=== PATIENT | male | born 1975 | race Caucasian/White ===

== ENCOUNTER 2022-05-21 16:31 | Emergency (ER) | payer OTHER, SELFPAY ==
[2022-05-21 16:34] VITALS: BP 149/109; PULSE 82; RESP 20; TEMP 36.6; O2SAT 100
[2022-05-21 16:42] LABS: Glucose Point of Care 460 mg/dl (65-105)
--- NOTE | 2022-05-21 17:38 | ED.RECABL ---
HPI - Recheck/Abnormal Lab/Rx General Chief Complaint: Recheck/Abnormal Lab/Rx Stated Complaint: can't get blood suger under 500 Time Seen by Provider: 05/21/22 17:03 Source: patient Mode of arrival: ambulatory Limitations: no limitations History of Present Illness HPI narrative: 46 years old white male drove himself to the emergency room because unable to control his blood glucose over the last 2 days. Blood glucose was over 500 prior to arrival to the emergency room. patient denies any fever, chills, , vomiting, chest pain, shortness of breath, abdominal pain, back pain, or respiratory symptoms. Complaining of blurry vision, thirsty, increased frequency of urination. Patient reports lately been noncompliant with his medications or his diet. Is going through divorce with a lot of stress Related Data Home Medications Medication Instructions Recorded Confirmed glimepiride 2 mg tablet 2 mg PO DAILY 05/21/22 rosuvastatin 10 mg tablet 10 mg PO DAILY 05/21/22 Allergies Allergy/AdvReac Type Severity Reaction Status Date / Time No Known Allergies Allergy Unknown Verified 05/21/22 16:37 Review of Systems Review of Systems: All systems reviewed & are unremarkable except as noted in HPI and below PMFSH Social History Social History Smoking status: Current every day smoker Alcohol intake: never Exam Narrative: General appearance: Well-developed, well-nourished Skin: Normal color Head: Normocephalic, nontraumatic Eyes: Clear conjunctiva ENT: Oropharynx normal, ears normal, nose normal Neck: Supple, nontender Chest and respiratory: Airway patent, no respiratory distress, no accessory muscle use Heart: Regular rate/rhythm Abdomen: Soft, nontender, no organomegaly, quiet bowel sounds Vascular: Normal peripheral pulses, normal capillary refill. Musculoskeletal: Normal range of motion, nontender back Neurologic: Alert and oriented ?3, COMMERCIAL MAINTENANCE TECHNICIAN is normal as tested, no gross motor deficit Course Course Emergency Course: Work-up today showed that the patient is not in DKA, patient is noncompliant with his medication, 2 L of normal saline was given, 10 units of insulin IV was given, patient was advised to continue his home medication and to follow-up with his family physician for further evaluation. Vital Signs Vital signs: Vital Signs Temperature 36.6 C 05/21/22 16:34 Pulse Rate 82 05/21/22 16:34 Respiratory Rate 20 05/21/22 16:34 Blood Pressure 149/109 H 05/21/22 16:34 Pulse Oximetry 100 05/21/22 16:34 Oxygen Delivery Room Air 05/21/22 16:34 Temperature 36.6 C 05/21/22 16:34 Pulse Rate 82 05/21/22 16:34 Respiratory Rate 20 05/21/22 16:34 Blood Pressure 149/109 H 05/21/22 16:34 Pulse Oximetry 100 05/21/22 16:34 Oxygen Delivery Room Air 05/21/22 16:34 MDM - Recheck/Abnormal Lab/Rx Differential Diagnosis Differential diagnosis: Likely other (Contacted for blood glucose management) Lab Data Result diagrams: 05/21/22 17:55 05/21/22 17:55 Labs: Lab Results 05/21/22 05/21/22 05/21/22 Range/Units 16:39 17:55 17:55 WBC 7.8 (4.5-10.0) K/mm3 RBC 4.98 (4.6-6.20) M/mm3 Hgb 16.1 (14.0-18.0) g/dL Hct 45.1 (42.0-52.0) % MCV 90.6 (80-100) fl MCH 32.3 (26-34) pg MCHC 35.7 (32-36) g/dl RDW 11.7 (11.5-14.5) % Plt Count 260 (150-375) k/mm3 MPV 9.7 (7.4-10.4) fl Immature Gran % (Auto) 0.5 (0-0.5) % Neut % (Auto) 61.2 (45.5-73.1) % Lymph % (Auto) 32.4 (18.3-44.2) % [place] % (Auto) 4.2 (2.6-8.5) % Eos % (Auto) 1.4 (0-4.4) % Baso % (Auto) 0.3
[2022-05-21 18:05] LABS: Basophils Percent Auto 0.3 % (0.2-1.2); Eosinophils Absolute Auto 0.1 K/mm3 (0-0.3); Eosinophils Percent Auto 1.4 % (0-4.4); Hematocrit 45.1 % (42.0-52.0); Hemoglobin 16.1 g/dL (14.0-18.0); Immature Granulocyte Absolute 0.04 K/mm3 (0.00-0.031); Immature Granulocyte Percent A 0.5 % (0-0.5); Lymphocytes Absolute Auto 2.52 K/mm3 (0.9-3.2); Lymphocytes Percent Auto 32.4 % (18.3-44.2); Mean Corpuscular HGB Conc 35.7 g/dl (32-36); Mean Corpuscular Hemoglobin 32.3 pg (26-34); Mean Corpuscular Volume 90.6 fl (80-100); Mean Platelet Volume 9.7 fl (7.4-10.4); Monocytes Absolute Auto 0.3 K/mm3 (0.1-0.6); Monocytes Percent Auto 4.2 % (2.6-8.5); Neutrophils Absolute Auto 4.8 K/mm3 (1.3-6.7); Neutrophils Percent Auto 61.2 % (45.5-73.1); Platelet Count Result 260 k/mm3 (150-375); Red Blood Count 4.98 M/mm3 (4.6-6.20); Red Cell Distribution Width 11.7 % (11.5-14.5); White Blood Count 7.8 K/mm3 (4.5-10.0)
[2022-05-21 18:09] LABS: Fractional Inspired Oxygen 21 %; HCO3 VBG 24.5 mEq/l (24.0-30.0); PCO2 VBG 40.6 mmHg (42.0-48.0); PO2 VBG 48.7 mmHg (35.0-45.0); pH VBG 7.399 (7.300-7.400)
[2022-05-21 18:10] LABS: Alanine Aminotransferase 36 U/L (6-50); Albumin Level 4.5 g/dL (3.5-5.1); Alkaline Phosphatase 95 U/L (38-126); Anion Gap 9 mmol/L (8-16); Aspartate Amino Transferase 25 U/L (17-59); Bilirubin,Total 0.4 mg/dL (0.2-1.3); Blood Urea Nitrogen 15 mg/dL (9-20); Calcium 9.2 mg/dL (8.4-10.2); Carbon Dioxide 26 mmol/L (22-30); Chloride 97 mmol/L (98-107); Estimated CRCL calculation 122 ml/min; Estimated Glomerular Filt Rate > 60; Glucose 424 mg/dL (65-110); Phosphorus 3.5 mg/dL (2.5-4.5); Potassium 4.5 mmol/L (3.4-5.0); Sodium 132 mmol/L (137-145)
[2022-05-21 18:13] LABS: Device ROOM AIR
[2022-05-21 18:24] LABS: Beta-Hydroxybutyrate/Acetoacetate 0.09 mmol/L (0.02-0.27)
[2022-05-21] MEDS: SODIUM CHLORIDE 0.9% IV 1,000 ML 2000 ML IV CONT (18:35)
[2022-05-21] MEDS: INSULIN HUMAN REGULAR (*BKC) 100 UNITS/ML 10 UNITS IV PUSH (18:42)
[2022-05-21 19:11] LABS: Add Urine Microscopic? YES; Appearance Urine Clear (Clear); Bilirubin Urine Negative (Negative); Blood Urine Negative (Negative); Color Urine Straw (Yellow); Glucose Urine UA 3+ mg/dL (Negative); Ketones Urine Negative (Negative); Leukocyte Esterase Ur Negative LEU/UL (Negative); Nitrate Urine Negative (Negative); Protein Urine Negative (Negative); RBC Urine 0-2 /hpf (0-2); Specific Grav Ur 1.029 (1.001-1.035); Urobilinogen Urine Negative mg/dL (<2.0)
[2022-05-21 19:45] LABS: Glucose Point of Care 156 mg/dl (65-105)
== END 2022-05-21 20:21 | disposition home or self-care (01) ==
PROVIDERS: Emergency Provider Emergency Medicine; PCP Emergency Medicine
DX: E11.65 Type 2 diabetes mellitus with hyperglycemia (principal); Z79.84 Long term (current) use of oral hypoglycemic drugs
CPT/HCPCS: 36415; 80053; 81001; 82010; 82803; 82948; 83735; 84100; 85025; 96361; 96374; 99284; J1815; J7030

== ENCOUNTER 2023-02-03 11:40 | Emergency (ER) | payer OTHER, SELFPAY ==
[2023-02-03 11:43] VITALS: BP 126/85; PULSE 76; RESP 20; TEMP 36.4; O2SAT 100
[2023-02-03 11:59] LABS: Glucose Point of Care > 500 mg/dl (65-105)
[2023-02-03 12:04] LABS: Basophils Percent Auto 0.3 % (0.2-1.2); Eosinophils Absolute Auto 0.1 K/mm3 (0-0.3); Hemoglobin 16.2 g/dL (14.0-18.0); Immature Granulocyte Absolute 0.02 K/mm3 (0.00-0.031); Immature Granulocyte Percent A 0.3 % (0-0.5); Lymphocytes Absolute Auto 2.57 K/mm3 (0.9-3.2); Lymphocytes Percent Auto 36.9 % (18.3-44.2); Mean Corpuscular Hemoglobin 31.8 pg (26-34); Mean Corpuscular Volume 88.4 fl (80-100); Monocytes Absolute Auto 0.3 K/mm3 (0.1-0.6); Neutrophils Percent Auto 57.5 % (45.5-73.1); Platelet Count Result 236 k/mm3 (150-375); Red Blood Count 5.09 M/mm3 (4.6-6.20)
[2023-02-03 12:17] LABS: Alanine Aminotransferase 30 U/L (6-50); Albumin Level 4.2 g/dL (3.5-5.1); Alkaline Phosphatase 69 U/L (38-126); Anion Gap 8 mmol/L (8-16); Aspartate Amino Transferase 28 U/L (17-59); Bilirubin,Total 0.8 mg/dL (0.2-1.3); Blood Urea Nitrogen 14 mg/dL (9-20); Calcium 8.9 mg/dL (8.4-10.2); Carbon Dioxide 28 mmol/L (22-30); Chloride 94 mmol/L (98-107); Estimated CRCL calculation 121 ml/min; Estimated Glomerular Filt Rate > 60; Glucose 558 mg/dL (65-110); Magnesium 2.1 mg/dL (1.6-2.3); Phosphorus 2.9 mg/dL (2.5-4.5); Potassium 4.4 mmol/L (3.4-5.0); Sodium 130 mmol/L (137-145)
--- NOTE | 2023-02-03 12:28 | ED.RECABL ---
HPI - Recheck/Abnormal Lab/Rx General Chief Complaint: Recheck/Abnormal Lab/Rx Stated Complaint: high blood sugar Time Seen by Provider: 02/03/23 12:01 History of Present Illness HPI narrative: Patient is a 47-year-old male with a history of diabetes presenting with high blood sugar. Patient states that he ran out of his insulin several weeks ago. States that he makes poor life decisions and has not contacted his doctor for refills. States that he would like the number for a new primary care doctor. States that his blood sugars have been in the 500s for the last few days. States that he needs refills for his Lantus and lispro. He denies any pain. Denies vomiting or diarrhea. No dysuria. Denies further complaints. Related Data Home Medications Medication Instructions Recorded Confirmed glimepiride 2 mg tablet 2 mg PO DAILY 05/21/22 rosuvastatin 10 mg tablet 10 mg PO DAILY 05/21/22 Allergies Allergy/AdvReac Type Severity Reaction Status Date / Time No Known Allergies Allergy Unknown Verified 05/21/22 16:37 Review of Systems Review of Systems: All systems reviewed & are unremarkable except as noted in HPI and below PMFSH Social History Social History Smoking status: Current every day smoker Alcohol intake: never Exam Narrative: GENERAL: Well-appearing, well-nourished, and in no acute distress. HEAD: Normocephalic, atraumatic. EYES: PERRLA and EOMI. ENT: Nares clear, no rhinorrhea or epistaxis. Mucous membranes moist. NECK: Supple. CHEST: No respiratory distress. HEART: Regular rate and rhythm. ABDOMEN: Soft, nontender, nondistended EXTREMITIES: Normal range of motion. No edema. SKIN: Warm, dry, no rash. NEURO: No focal deficits. Alert and oriented x3. PSYCH: Normal mood and affect. Course Vital Signs Vital signs: Vital Signs Temperature 97.6 F 02/03/23 11:43 Pulse Rate 76 02/03/23 11:43 Respiratory Rate 20 02/03/23 11:43 Blood Pressure 126/85 02/03/23 11:43 Pulse Oximetry 100 02/03/23 11:43 Oxygen Delivery Room Air 02/03/23 11:43 Temperature 97.6 F 02/03/23 11:43 Pulse Rate 82 07/03/23 15:32 Respiratory Rate 16 02/03/23 15:32 Blood Pressure 123/83 02/03/23 15:32 Pulse Oximetry 98 02/03/23 15:32 Oxygen Delivery Room Air 02/03/23 11:43 MDM - Recheck/Abnormal Lab/Rx MDM Narrative Medical decision making narrative: Patient is a 47-year-old male presenting with hyperglycemia in the setting of not refilling his diabetes medications. Vitals within normal limits. Exam remarkable for the above. Blood work with a glucose of 558. There is no evidence of DKA. We will give the patient some fluids as well as his doses of lispro and Lantus. We will provide prescriptions for these for him to get through until he can follow-up with PCP. Blood glucose down to the 300s following fluids, insulin. Feel the patient is safe for outpatient management. We will send in prescriptions for his diabetes meds and provide number for a new PCP. Appropriate return precautions given. Patient voiced understanding and is agreeable with plan. Discharged in stable condition. Differential Diagnosis Differential diagnosis: Likely encounter for medication refill and other (hyperglycemia) Medical Records Attestation: I reviewed the patient's medical records. Lab Data Attestation: I reviewed the patient's lab results. 02/03/23 11:58 02/03/23 11:58 Labs: Lab Results 02/03/23 02/03/23 02/03/23 Range/Units 11:51 11:58 12:32 WBC 7.0 (4.5-10.0) K/mm3 RBC 5.09 (4.6-6.20) M/mm3 Hgb 16.2 (14.0-18.0) g/dL Hct 45.0 (42.0-52.0) % MCV 88.4 (80-100) fl MCH 31.8 (26-34) pg MCHC 36.0 (32-36) g/dl RDW 12.0 (11.5-14.5) % Plt Count 236 (150-375) k/mm3 MPV 9.0 (7.4-10.4) fl Immature Gran % (Auto) 0.3 (0-0.5) % Neut % (Auto) 57.5 (45.
[2023-02-03 12:32] LABS: Beta-Hydroxybutyrate/Acetoacetate 0.16 mmol/L (0.02-0.27)
[2023-02-03] MEDS: SODIUM CHLORIDE 0.9% IV 1,000 ML 999 ML IV CONT (12:44)
[2023-02-03] MEDS: INSULIN ASPART (*BKC) 100 UNITS/ML SUB-Q (12:45)
[2023-02-03] MEDS: INSULIN GLARGINE (*BKC) 100 UNITS/ML 10 UNITS SUB-Q (12:46)
[2023-02-03 12:54] LABS: Appearance Urine Clear (Clear); Bilirubin Urine Negative (Negative); Blood Urine Negative (Negative); Color Urine Yellow (Yellow); Glucose Urine UA 3+ mg/dL (Negative); Ketones Urine Negative (Negative); Leukocyte Esterase Ur Negative LEU/UL (Negative); Nitrate Urine Negative (Negative); Protein Urine Negative (Negative); Urobilinogen Urine 0.2 mg/dL (<2.0); pH Urine 7.5 (5.0-9.0)
[2023-02-03 13:23] LABS: Specific Grav Ur 1.036 (1.001-1.035)
[2023-02-03 13:24] LABS: Add Urine Microscopic? NO
[2023-02-03 13:47] LABS: Glucose Point of Care 377 mg/dl (65-105)
[2023-02-03 15:32] VITALS: BP 123/83; PULSE 82; RESP 16; O2SAT 98
== END 2023-02-03 15:33 | disposition home or self-care (01) ==
PROVIDERS: Emergency Medicine; Emergency Provider Emergency Medicine
DX: E11.65 Type 2 diabetes mellitus with hyperglycemia (principal); F17.200 Nicotine dependence, unspecified, uncomplicated; T38.3X6A Underdosing of insulin and oral hypoglycemic [antidiabetic] drugs, initial encounter; Z91.128 Patient's intentional underdosing of medication regimen for other reason
CPT/HCPCS: 36415; 80053; 81003; 82010; 82948; 83735; 84100; 85025; 96360; 96361; 96374; 99284; J1815; J7030

== ENCOUNTER 2025-06-01 18:58 | Emergency (ER) | payer OTHER, SELFPAY ==
[2025-06-01 19:05] VITALS: BP 141/95; PULSE 79; RESP 16; TEMP 36.5; O2SAT 99
--- NOTE | 2025-06-01 19:09 | ED_ITS ---
HPI - Male Genitourinary General Chief complaint: Urogenital-Male Stated complaint: Std Test Time Seen by Provider: 06/01/25 19:09 Source: patient Mode of arrival: ambulatory Limitations: no limitations History of Present Illness HPI Narrative: 49-year-old male presents for STI testing. Reports exposure to chlamydia. Sexually active with partner multiple times without using protection. Asymptomatic. All systems reviewed and negative except as noted above. Related Data Home Medications ?Medication ?Instructions ?Recorded ?Confirmed ?Last Taken ?Type glimepiride 2 mg tablet 2 mg PO DAILY 05/21/2206/01 Unknown History Allergies Allergy/AdvReac Type Severity Reaction Status Date / Time No Known Allergies Allergy Unknown Verified 06/01/25 19:02 [facility] Social History Social History Smoking status: Current every day smoker Alcohol intake: never Comments At time of signature, agree with nursing past medical, surgical, social and family history. There is no relevant family history pertinent to the presenting complaint. Exam Narrative: GENERAL: This is a well-nourished, well-developed patient, in no apparent distress. HEAD: normocephalic, atraumatic. EYES: PERRL. Sclera clear/white. Vision is grossly intact. EARS: External ears normal NOSE: External nose normal NECK: Neck supple, non-tender without lymphadenopathy, masses or thyromegaly. CARDIOVASCULAR: Regular rate and rhythm without murmurs, gallops, or rubs. RESPIRATORY: Clear to auscultation. Breath sounds equal bilaterally. No wheezes, rales, or rhonchi. SKIN: warm, Dry, intact with no suspicious lesions or rash, good texture and turgor. NEURO: awake, alert, and oriented to person, place and time. There were no obvious focal neurologic abnormalities. EXTREMITIES: No joint tenderness, effusion, or edema noted. Course Course Level of Care: Express Care Visit Vital Signs Vital signs: Vital Signs Temperature 36.5 C 06/01/25 19:05 Pulse Rate 79 06/01/25 19:05 Respiratory Rate 16 06/01/25 19:05 Blood Pressure 141/95 H 06/01/25 19:05 Pulse Oximetry 99 06/01/25 19:05 Temperature 36.5 C 06/01/25 19:05 Pulse Rate 79 06/01/25 19:05 Respiratory Rate 16 06/01/25 19:05 Blood Pressure 141/95 H 06/01/25 19:05 Pulse Oximetry 99 06/01/25 19:05 Reviewed MDM - Male Genitourinary MDM Narrative Medical decision making narrative: Urine sent for gonorrhea, chlamydia and Trichomonas testing. Will treat with doxycycline today due to chlamydia exposure. Patient agrees with plan of care. Patient is well-appearing, nontoxic. Discharge Plan Discharge Clinical Impression: Concern about STI in male without diagnosis, Exposure to chlamydia Patient Disposition: Home Condition: Stable Instructions: Antibiotic Form, Chlamydia (ED) Additional Instructions: You were tested for gonorrhea, chlamydia and Trichomonas today. Test results may take 2-3 days. Take antibiotics as prescribed to treat chlamydia. Follow-up with your primary care physician as needed. Patient Language: Romanian Prescriptions: New doxycycline hyclate 100 mg capsule 100 mg PO BID 7 Days Qty: 14 0RF No Action glimepiride 2 mg Tablet 2 mg PO DAILY insulin lispro 100 unit/mL insulin pen 5 unit subcut TID Qty: 15 0RF Rx Instructions: TID with meals insulin glargine [Lantus Solostar U-100 Insulin] 100 unit/mL (3 mL) insulin pen 10 unit subcut QPM Qty: 15 0RF Follow-up/Referrals: PHYSICIAN,[employer]AKAGE TESTER [Primary Care Provider, Internal Medicine] Time of Disposition: 19:14
[2025-06-02 20:21] LABS: Trichomonas Vag PCR NOT DETECTED (NOT DETECTE)
== END 2025-06-01 19:18 | disposition home or self-care (01) ==
PROVIDERS: Emergency Provider Nurse Practitioner Family
DX: Z20.2 Contact with and (suspected) exposure to infections with a predominantly sexual mode of transmission (principal)
CPT/HCPCS: 87491; 87591; 87661; 99213; G0463